=== PATIENT | male | born 1995 | race Caucasian/White ===

== ENCOUNTER 2017-06-25 15:08 | Emergency (ER) | payer OTHER ==
[2017-06-25 15:40] VITALS: BP 139/75
--- NOTE | 2017-06-25 15:55 | UC ---
General HPI - HPI Summary HPI Summary: TICK FRAGMENTS EMBEDDED IN LEFT ARM FOR TWO DAYS. NOTICED AND KILLED TICK YESTERDAY BUT FRAGMENTS REMAIN, ARM IS BECOMING UNCOMFORTABLE, CONCERNED ABOUT TICK FRAGMENTS. - History of Current Complaint Chief Complaint: Eulogio Stated Complaint: TICK Time Seen by Provider: 06/25/17 15:34 Hx Obtained From: Patient, Family/Purchasing Manager Onset/Duration: Gradual Onset, Lasting Days Onset Severity: Mild Current Severity: Mild Associated Signs & Symptoms: Negative: Fever, SOB, Trauma, Weakness - Allergy/Home Medications Allergies/Adverse Reactions: Allergies Allergy/AdvReac Type Severity Reaction Status Date / Time No Known Allergies Allergy Verified 06/25/17 15:39 PMH/Surg Hx/FS Hx/Imm Hx Previously Healthy: Yes - Surgical History Surgical History: Yes Surgery Procedure, Year, and Place: WISDOM TEETH EXTRACTIONS - Family History Known Family History: Negative: Blood Disorder - Social History Occupation: Employed Full-time Lives: With Family Alcohol Use: None Substance Use Type: None Smoking Status (MU): Current Every Day Smoker Type: Cigarettes Amount Used/How Often: 1 PPD Have You Smoked in the Last Year: Yes When Did the Patient Quit Smoking/Using Tobacco: 10 YRS Cessation Counseling: Patient Advised to Stop Review of Systems Constitutional: Negative Skin: Other - EMBEDDED TICK FRAGMENTS LEFT ARM. Eyes: Negative ENT: Negative Respiratory: Negative Cardiovascular: Negative Gastrointestinal: Negative Genitourinary: Negative Motor: Negative Neurovascular: Negative Musculoskeletal: Negative Neurological: Negative Psychological: Negative Is Patient Immunocompromised?: No All Other Systems Reviewed And Are Negative: Yes Physical Exam Triage Information Reviewed: Yes Appearance: Well-Appearing, No Pain Distress, Well-Nourished Vital Signs: Initial Vital Signs Temp 98.3 F 06/25/17 15:34 Pulse 64 06/25/17 15:34 Resp 16 06/25/17 15:34 BP 139/75 06/25/17 15:34 Pulse Ox 100 06/25/17 15:34 Vital Signs Reviewed: Yes Eye Exam: Normal ENT Exam: Normal ENT: Positive: Normal ENT inspection Dental Exam: Normal Neck exam: Normal Neck: Positive: Supple, Nontender Respiratory Exam: Normal Respiratory: Positive: Chest non-tender, Lungs clear, Normal breath sounds, No respiratory distress, No accessory muscle use Cardiovascular Exam: Normal Cardiovascular: Positive: RRR, No Murmur, Pulses Normal, Brisk Capillary Refill Abdominal Exam: Normal Musculoskeletal Exam: Normal Musculoskeletal: Positive: Strength Intact, ROM Intact Neurological Exam: Normal Psychological Exam: Normal Skin: Positive: Other - EMBEDDED TICK FRAGMENTS LEFT ARM. Procedures - Procedure Summary Procedure Summary: EMBEDDED TICK FRAGMENTS LEFT ARM. 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 Course/Dx - Differential Dx - Multi-Symptom Provider Diagnoses: EMBEDDED TICK FRAGMENTS LEFT ARM. TICK BITE PROPHYLAXIS. Discharge - Discharge Plan Condition: Stable Disposition: HOME Prescriptions: DOXYcycline CAP(*) [DOXYcycline 100MG CAP(*)] 200 mg PO BID #2 cap Patient Education Materials: Tick Bite (ED) Referrals: [facility] [place] [facility] REFERRAL [Outside] Images Front/Back of Body, Lg ([place]): 1 - EMBEDDED TICK FRAGMENTS LEFT ARM.
== END 2017-06-25 15:55 | disposition home or self-care (01) ==
LOC: UCCORT 15:08
DX: S40.862A Insect bite (nonvenomous) of left upper arm, initial encounter (principal); W57.XXXA Bitten or stung by nonvenomous insect and other nonvenomous arthropods, initial encounter; Y93.9 Activity, unspecified; Y92.9 Unspecified place or not applicable; F17.210 Nicotine dependence, cigarettes, uncomplicated
CPT/HCPCS: 99202; G0463